=== PATIENT | female | born 1965 | race Two or more races ===

== ENCOUNTER 2023-11-12 16:58 | Inpatient (IN) | payer MEDICAID, OTHER ==
[~2023-11-12] VITALS: Ht 149.9 cm; Wt 81.6 kg
[2023-11-12 18:09] LABS: Basophils # (auto) 0.1 10 ^3/uL (0-0.2); Hemoglobin 11.9 g/dL (12.2-16.2); Lymphocytes # (auto) 0.9 10 ^3/uL (0.4-5.4); Mean Corpuscular Hemoglobin 28.9 pg (28.0-32.0); Monocytes # (auto) 1.7 10 ^3/uL (0-1.3)
[2023-11-12 18:11] LABS: Basophils % (auto) 0.6 % (0.0-2.0); Eosinophils # (auto) 0.1 10 ^3/uL (0-0.8); Eosinophils % (auto) 0.3 % (0.0-7.0); Lymphocytes % (auto) 4.9 % (10.0-50.0); Mean Corpuscular Hgb Conc. 32.1 g/dL (32.0-36.0); Mean Corpuscular Volume 89.9 fL (80.0-100.0); Neutrophils # (auto) 16.3 10 ^3/uL (1.6-8.6); Neutrophils % (auto) 85.2 % (37.0-80.0); Red Blood Cells 4.12 10^6/uL (4.0-5.20); Red Cell Distribution Width 13.1 % (11.8-14.3); White Blood Cell 19.2 10^3/uL (4.4-10.8)
[2023-11-12 18:23] LABS: Alanine Aminotransferase 41 U/L (7-40); Albumin 3.7 g/dL (3.2-4.8); Alkaline Phosphatase 129 U/L (46-116); Anion Gap 11 (5-15); Aspartate Aminotransferase 72 U/L (13-40); BUN/Creatinine Ratio 22.9 (10.0-20.0); Blood Urea Nitrogen 16 mg/dL (9-23); Calcium 9.3 mg/dL (8.5-10.1); Carbon Dioxide 25 mmol/L (20-30); Chloride 98 mmol/L (98-107); Glucose 84 mg/dL (74-106); Potassium 4.6 mmol/L (3.5-5.1); Sodium 134 mmol/L (136-145)
[2023-11-12 18:24] LABS: Bilirubin, Total 0.9 mg/dL (0.2-1.0); Total Protein 7.2 g/dL (5.7-8.2)
[2023-11-12 18:32] LABS: CRP High Sensitivity 17.81 mg/dL (<1.0)
[2023-11-12] MEDS ORDERED: VANCOMYCIN 1GM/200ML 250 ML IV ONE (19:00)
[2023-11-12] MEDS ORDERED: PIPERACILLIN-TAZOB 3.375GM 100 ML IV ONE (19:00)
[2023-11-12 22:00] VITALS: PULSE 108; RESP 20; O2SAT 99
[2023-11-12 22:23] LABS: Erythrocyte Sedimentation Rate 91 mm/hr (0-20)
[2023-11-12] MEDS ORDERED: VANCOMYCIN 1GM/200ML 200 ML IV ONE (22:29)
[2023-11-13] MEDS ORDERED: ACETAMINOPHEN 325 MG TAB PO PRN (05:30)
[2023-11-13] MEDS ORDERED: ONDANSETRON HCL 4 MG/2 ML VIAL IV PRN (05:30)
[2023-11-13] MEDS ORDERED: VANCOMYCIN PER PHARMACY 0 MG IV SCH (05:30)
[2023-11-13] MEDS: PIPERACILLIN-TAZOB 3.375GM 100 ML IV SCH ×3 (06:23→23:35)
[2023-11-13 06:56] LABS: INR 1.11 (0.9-1.15); Partial Thromboplastin Time 37.8 SEC (24.5-34.5); Prothrombin Time 11.6 sec (9.3-11.8)
[2023-11-13] MEDS ORDERED: PIPERACILLIN-TAZOB 3.375GM 100 ML IV ONE (12:39)
[2023-11-13 16:00] VITALS: BP 99/50; PULSE 104; RESP 18; TEMP 98.2; O2SAT 96
[2023-11-13 17:33] VITALS: BP 139/57; PULSE 83; RESP 19; TEMP 98.9; O2SAT 94
[2023-11-13 20:00] VITALS: PULSE 114; RESP 18; O2SAT 96
[2023-11-13 22:00] VITALS: BP 100/45; PULSE 120; RESP 18; TEMP 100.8; O2SAT 96
[2023-11-13 22:30] VITALS: BP 110/56; PULSE 114; RESP 17; TEMP 99.4; O2SAT 96
[2023-11-14] VITALS (9 sets, daily range): BP systolic 90–102; BP diastolic 45–53; PULSE 95–111; RESP 17–19; TEMP 97.9–98.5; O2SAT 93–99
[2023-11-14] MEDS ORDERED: ALBUMIN 25% 50 ML IV ONE (05:30)
[2023-11-14] MEDS ORDERED: SODIUM CHLORIDE 0.9% 500 ML IV ONE (05:30)
[2023-11-14 06:34] LABS: Basophils # (auto) 0.1 10 ^3/uL (0-0.2); Basophils % (auto) 0.9 % (0.0-2.0); Eosinophils # (auto) 0.2 10 ^3/uL (0-0.8); Eosinophils % (auto) 2.1 % (0.0-7.0); Hematocrit 31.5 % (36.0-46.0); Hemoglobin 10.1 g/dL (12.2-16.2); Lymphocytes # (auto) 1.8 10 ^3/uL (0.4-5.4); Lymphocytes % (auto) 17.6 % (10.0-50.0); Mean Corpuscular Hemoglobin 28.6 pg (28.0-32.0); Mean Corpuscular Hgb Conc. 32.1 g/dL (32.0-36.0); Mean Corpuscular Volume 89.2 fL (80.0-100.0); Monocytes # (auto) 1.2 10 ^3/uL (0-1.3); Monocytes % (auto) 12.2 % (0.0-12.0); Neutrophils # (auto) 6.9 10 ^3/uL (1.6-8.6); Neutrophils % (auto) 67.2 % (37.0-80.0); Nucleated Red Blood Cells % 0.1 %; Red Blood Cells 3.53 10^6/uL (4.0-5.20); Red Cell Distribution Width 13.5 % (11.8-14.3); White Blood Cell 10.2 10^3/uL (4.4-10.8)
[2023-11-14 06:54] LABS: Alanine Aminotransferase 34 U/L (7-40); Alkaline Phosphatase 103 U/L (46-116); Anion Gap 8 (5-15); Aspartate Aminotransferase 39 U/L (13-40); BUN/Creatinine Ratio 10.9 (10.0-20.0); Blood Urea Nitrogen 10 mg/dL (9-23); Calcium 8.3 mg/dL (8.5-10.1); Carbon Dioxide 26 mmol/L (20-30); Chloride 103 mmol/L (98-107); Glucose 97 mg/dL (74-106); Potassium 4.3 mmol/L (3.5-5.1); Sodium 137 mmol/L (136-145)
[2023-11-14 06:55] LABS: Bilirubin, Total 0.4 mg/dL (0.2-1.0); Total Protein 6.1 g/dL (5.7-8.2)
[2023-11-14 07:16] LABS: Albumin 3.1 g/dL (3.2-4.8)
[2023-11-14] MEDS: PIPERACILLIN-TAZOB 3.375GM 100 ML IV SCH ×3 (07:50→17:41)
[2023-11-14] MEDS: VANCOMYCIN 1GM/200ML 200 ML IV SCH (09:38)
[2023-11-14] MEDS: D5W/SOD CHLO 0.9% 1,000 ML IV SCH ×2 (13:05→17:51)
[2023-11-14] MEDS: DAKINS QUARTER STR 0.125% (NaHypochlorite) 473 ML TOPICAL SOL TOP SCH (22:00)
[2023-11-14] MEDS: HYDROcodone-ACET 5/325MG TAB PO PRN ×2 (22:23)
[2023-11-15] VITALS (7 sets, daily range): BP systolic 93–123; BP diastolic 43–60; PULSE 87–111; RESP 16–20; TEMP 98.4–100.4; O2SAT 95–100
[2023-11-15] MEDS: PIPERACILLIN-TAZOB 3.375GM 100 ML IV SCH ×4 (00:15→18:37)
[2023-11-15] MEDS: D5W/SOD CHLO 0.9% 1,000 ML IV SCH ×3 (01:52→21:35)
[2023-11-15] MEDS: VANCOMYCIN 1GM/200ML 200 ML IV SCH ×2 (04:21→17:21)
[2023-11-15] MEDS: DAKINS QUARTER STR 0.125% (NaHypochlorite) 473 ML TOPICAL SOL TOP SCH ×2 (12:46→21:50)
[2023-11-16] MEDS: PIPERACILLIN-TAZOB 3.375GM 100 ML IV SCH ×3 (00:15→11:14)
[2023-11-16] MEDS: VANCOMYCIN 1GM/200ML 200 ML IV SCH (03:31)
[2023-11-16] MEDS: D5W/SOD CHLO 0.9% 1,000 ML IV SCH ×2 (04:52→10:55)
[2023-11-16 05:36] VITALS: BP 111/55; PULSE 99; RESP 19; TEMP 98.8; O2SAT 96
[2023-11-16 08:00] VITALS: PULSE 102; PULSE 87; RESP 18
[2023-11-16 08:20] LABS: Chloride 105 mmol/L (98-107); Potassium 3.8 mmol/L (3.5-5.1); Sodium 138 mmol/L (136-145)
[2023-11-16 08:21] LABS: Anion Gap 8 (5-15); Calcium 8.5 mg/dL (8.5-10.1); Carbon Dioxide 25 mmol/L (20-30)
[2023-11-16 08:26] LABS: Blood Urea Nitrogen 5 mg/dL (9-23); Glucose 102 mg/dL (74-106)
[2023-11-16 09:00] VITALS: BP 109/68; PULSE 87; RESP 18; TEMP 99; O2SAT 96
[2023-11-16] MEDS ORDERED: CEPH500C PO (12:04)
[2023-11-16] MEDS ORDERED: CLIN300C70 PO (12:04)
[2023-11-16] MEDS ORDERED: HYDR-4902 PO (12:04)
[2023-11-16] MEDS: DAKINS QUARTER STR 0.125% (NaHypochlorite) 473 ML TOPICAL SOL TOP SCH (15:11)
[2023-11-16] MEDS ORDERED: PIPERACILLIN-TAZOB 3.375GM 100 ML IV SCH (20:00)
== END 2023-11-16 15:00 | disposition home or self-care (01) | DRG 720 ==
LOC: ER 16:58 → OVERFLOW 22:48 → WEST WING 11-13 15:22 → TELE-WESTW 11-14 06:58
PROVIDERS: ADMIT Nurse Practitioner; ATTEND Family Medicine
DX: A41.9 Sepsis, unspecified organism (principal); S81.801A Unspecified open wound, right lower leg, initial encounter; L03.115 Cellulitis of right lower limb; L03.116 Cellulitis of left lower limb; M19.90 Unspecified osteoarthritis, unspecified site; X58.XXXA Exposure to other specified factors, initial encounter; Y93.89 Activity, other specified; Y92.89 Other specified places as the place of occurrence of the external cause; Y99.8 Other external cause status; S81.802A Unspecified open wound, left lower leg, initial encounter
CPT/HCPCS: 36415; 73701; 80048; 80053; 80202; 83605; 83880; 84484; 85025; 85379; 85610; 85652; 85730; 86141; 87040; 87077; 87186; 87205; 93005; 93970; 96365; 96366; 96367; G0378; J2543; J7042